=== PATIENT | female | born 2000 ===

== ENCOUNTER 2021-04-01 06:55 | Inpatient (IN) | payer SELFPAY ==
[2021-04-01] MEDS ORDERED: LACTATED RINGERS 1,000 ML ONE (07:57)
[2021-04-01] MEDS ORDERED: MINERAL OIL 30 ML ORAL LIQD PO PRN (09:06)
[2021-04-01] MEDS ORDERED: CARBOPROST TROMETHAMINE 250 MCG/1 ML INJ IM PRN (09:06)
[2021-04-01] MEDS ORDERED: ONDANSETRON 4 MG/2 ML INJ IV PRN (09:06)
[2021-04-01] MEDS ORDERED: NALOXONE 0.4 MG/1 ML INJ IV PRN (09:06)
[2021-04-01] MEDS ORDERED: PROMETHAZINE 25 MG TAB PO PRN (09:06)
[2021-04-01] MEDS ORDERED: OXYTOCIN 10 UNIT/1 ML INJ IM PRN (09:06)
[2021-04-01] MEDS ORDERED: miSOPROStol 200 MCG TAB PR PRN (09:06)
[2021-04-01] MEDS ORDERED: ACETAMINOPHEN 325 MG TAB PO PRN (09:06)
[2021-04-01] MEDS ORDERED: METHYLERGONOVINE MALEATE 0.2 MG/ML VIAL IM PRN (09:06)
[2021-04-01] MEDS ORDERED: LOPERAMIDE 2 MG CAP PO PRN (09:06)
[2021-04-01] MEDS ORDERED: ePHEDrine SULFATE 50 MG/1 ML INJ IV PRN (09:06)
[2021-04-01] MEDS ORDERED: NalbUPHINE 10 MG/1 ML INJ IV PRN (09:06)
[2021-04-01] MEDS ORDERED: TERBUTALINE 1 MG/1 ML INJ SUB-Q PRN (09:06)
[2021-04-01] MEDS ORDERED: fentaNYL 100 MCG/2 ML INJ IV PRN (09:06)
[2021-04-01] MEDS ORDERED: LACTATED RINGERS 1,000 ML IV SCH (09:15)
--- NOTE | 2021-04-01 09:19 | History and Physical Report ---
History of Present Illness Date of examination: 04/01/21 Date of admission: 04/01/21 Chief complaint: contractions History of present illness: at 40.0wks by LMP c/w [place] care at [facility] covered by [employer]. Pt presents with c/o ctx, denies LOF or vag bleed, but admits to bloody mucoid discharge. Denies headache. Admits to movement. recoreds with O positive, rubella immune, VDRL, HepBsAg and HIV all negative. GC/Chlam neg and GBS neg Past History Past Medical History: no pertinent history Past Surgical History: no surgical history Family/Genetic History: none Social history: no significant social history - Obstetrical History Expected Date of Delivery: 04/01/21 Actual Gestation: 40 Week(s) 0 Day(s) : 1 Number of Living Children: 0 Medications and Allergies Allergies Allergy/AdvReac Type Severity Reaction Status Date / Time No Known Allergies Allergy Unverified 04/01/21 07:25 Active Meds: Active Medications Acetaminophen (Acetaminophen 325 Mg Tab) 650 mg PO Q4H PRN PRN Reason: Pain, Mild (1-3) Carboprost Tromethamine (Carboprost Tromethamine 250 Mcg/1 Ml Inj) 250 mcg IM ONCE PRN PRN Reason: Uterine Bleeding Ephedrine Sulfate (Ephedrine Sulfate 50 Mg/1 Ml Inj) 10 mg IV Q2M PRN PRN Reason: Hypotension Fentanyl (Fentanyl 100 Mcg/2 Ml Inj) 100 mcg IV Q2H PRN PRN Reason: Pain,Severe (7-10) LABOR PAIN Oxytocin/Sodium Chloride (Pitocin/Ns 30 Unit/500ml) 30 units in 500 mls @ 2 mls/hr IV TITR KHALIDA; Protocol Lactated Ringer's (Lactated Ringers) 1,000 mls @ 125 mls/hr IV DIRECT KHALIDA Oxytocin/Sodium Chloride (Pitocin/Ns 30 Unit/500ml) 30 units in 500 mls @ 40 mls/hr IV TITR KHALIDA; Protocol Lidocaine (Lidocaine (2%) 20 Mg/1 Ml Vial 20 Ml Mdv) 20 ml INFILTRATI ONCE ONE Stop: 04/01/21 09:07 Loperamide HCl (Loperamide 2 Mg Cap) 2 mg PO ONCE PRN PRN Reason: give with Hemabate Methylergonovine Maleate (Methylergonovine Maleate 0.2 Mg/Ml Vial) 0.2 mg IM ONCE PRN PRN Reason: Uterine Bleeding Mineral Oil (Mineral Oil 30 Ml Oral Liqd) 30 ml PO QHS PRN PRN Reason: Constipation Misoprostol (Misoprostol 200 Mcg Tab) 800 mcg HI ONCE PRN PRN Reason: Uterine Bleeding Nalbuphine HCl (Nalbuphine 10 Mg/1 Ml Inj) 10 mg IV Q2H PRN PRN Reason: Pain, Moderate (4-6) Naloxone HCl (Naloxone 0.4 Mg/1 Ml Inj) 0.1 mg IV Q2MIN PRN PRN Reason: Res Rate </= 8 or 02 SAT < 92% Ondansetron HCl (Ondansetron 4 Mg/2 Ml Inj) 4 mg IV Q8H PRN PRN Reason: Nausea And Vomiting Oxytocin (Oxytocin 10 Unit/1 Ml Inj) 10 unit IM ONCE PRN PRN Reason: Uterine Bleeding Promethazine HCl (Promethazine 25 Mg Tab) 25 mg PO Q6H PRN PRN Reason: Nausea And Vomiting Terbutaline Sulfate (Terbutaline 1 Mg/1 Ml Inj) 0.25 mg SUB-Q ONCE PRN PRN Reason: Hyperstimulation/Hypertonicity Review of Systems All systems: negative (ctx) - Vital Signs Vital signs: Vital Signs Pulse Pulse Ox 93 H 99 04/01/21 07:21 04/01/21 07:21 Temp Pulse Resp BP Pulse Ox 84 100 04/01/21 07:51 04/01/21 07:51 - Physical Exam Breasts: Positive: deferred Cardiovascular: Regular rate Lungs: Positive: Normal air movement Genitourinary (Female): Positive: normal external genitalia Vulva: both: normal - Obstetrical FHR: category 1 Uterine Contraction Monitor Mode: External Cervical Dilatation: 6 (previously 4cm by triage nurse) Cervical Effacement Percentage: 90 station: -1 Uterine Contraction Pattern: Regular Results Result Diagrams: 04/01/21 08:16 04/01/21 18:54 All other labs normal. Assessment and Plan Term IUP in active labor, GBS negative 1. Admit to labor and delivery, repeat pelvic exam and if same unchanged then augment with IV pitocin in 2hrs 2. May have IV pain med or epidural when desired; expect 3. Plan of care discussed with pt and her mother at bedside per pt choice. Pt agrees. All questions encouraged and answered
[2021-04-01] MEDS ORDERED: OXYTOCIN DRIP 30,000 MILLIUNITS/500 ML BAG IV ONE (09:41)
[2021-04-01] MEDS ORDERED: OXYTOCIN DRIP 30 UNITS/500 ML BAG IV SCH ×2 (10:00)
[2021-04-01] MEDS ORDERED: LIDOCAINE (2%) 20 MG/1 ML VIAL 20 ML MDV INFILTRATI ONE ×2 (10:00→21:59)
[2021-04-01 11:12] LABS: Hematocrit 33.1 % (30.3-42.9); Hemoglobin 10.6 gm/dl (10.1-14.3); Mean Corpuscular HGB Conc 32 % (30-34); Mean Corpuscular Volume 88 fl (79-97); Platelet Count 213 K/mm3 (140-440); Red Blood Count 3.76 M/mm3 (3.65-5.03); Red Cell Distribution Width 16.6 % (13.2-15.2)
[2021-04-01] MEDS ORDERED: AMPICILLIN/NS 2 GM/100 ML 2 GM/100 ML BAG IV ONE (18:21)
[2021-04-01] MEDS: AMPICILLIN/NS 2 GM/100 ML 2 GM/100 ML BAG IV SCH (18:27)
[2021-04-01] MEDS: GENTAMICIN/NS 100 MG/100 ML 100 MG/100 ML BAG IV SCH (19:50)
[2021-04-01 20:17] LABS: Alanine Aminotransferase 14 units/L (7-56); Albumin 3.1 g/dL (3.9-5); Blood Urea Nitrogen 7 mg/dL (7-17); Calcium 8.8 mg/dL (8.4-10.2); Hemolysis Index 0
[2021-04-01 20:33] LABS: BUN/Creatinine Ratio 14
[2021-04-01] MEDS ORDERED: WITCH HAZEL/ GLYCERIN PAD TP PRN (23:03)
[2021-04-01] MEDS ORDERED: HYDROcodone/ACETAMINOPHEN 5-325 MG TAB PO PRN (23:03)
[2021-04-01] MEDS ORDERED: BENZOCAINE/MENTHOL 20/0.5% TOP SPRAY 56 GM TP PRN (23:03)
[2021-04-01] MEDS ORDERED: LANOLIN/ZINC/DIMETHICONE (LANSINOH) 7 GM TP PRN (23:03)
[2021-04-01] MEDS ORDERED: MAGNESIUM HYDROXIDE (MOM) ORAL LIQD UDC PO PRN (23:03)
--- NOTE | 2021-04-01 23:24 | Procedure Note ---
OB Delivery Note - Delivery Date of Delivery: 04/01/21 Surgeon: MEGAN OLIVER Estimated blood loss: 200cc - Vaginal Delivery presentation: vertex Delivery position: OA Intrapartum events: meconium Delivery augmentation: pitocin Delivery monitor: external FHT, external uterine Route of delivery: Delivery placenta: spontaneous Delivery cord: 3 umbilical vessels Delivery laceration: 1st degree Delivery repair: vicryl Anesthesia: none Delivery comments: Spontaneous vaginal delivery at 22:29 of liveborn male weighing 7 lb. 12 oz. with apgars of 8/9. Meconium stained amniotic fluid; NICU present for delivery. Snug shoulders; posterior arm delivered which made room for anterior shoulder. Baby placed on mom's chest immediately afer formerly [facility]. 3 vessel cord double clamped and cut and baby taken to [facility] for suctioning. Spontaneous cry and respirations. Spontaneous delivery of intact placenta and membranes; Pitocin to IV fluids. EBL 200 cc. Fundus firm at 2 FB below umbilicus. 1st degree episiotomy repaired with 3-0 vicryl. No other lacerations noted. Vaginal sweep negative. Sponge count correct. Mother and baby stable.
[2021-04-02] MEDS: GENTAMICIN/NS 100 MG/100 ML 100 MG/100 ML BAG IV SCH ×2 (05:54→17:18)
--- NOTE | 2021-04-02 05:59 | Progress Note ---
Assessment and Plan PPD#1 doing fair 1. Check CBC later today 2. Routine care and pt to ambulate in room All questions encouraged and answered Subjective Date of service: 04/02/21 Principal diagnosis: PPD#1 with swollen labia Interval history: pt has no complaints. pt voiding without difficulty. pt is bottle feeding. Pain controlled with meds. Objective - Constitutional Vitals: Vital Signs - 12hr 04/01/21 04/01/21 04/01/21 17:56 18:07 18:09 Temperature Pulse Rate 88 75 78 Respiratory Rate Blood Pressure 113/63 O2 Sat by Pulse 99 99 Oximetry O2 Sat by Pulse Oximetry [ Bilateral] 04/01/21 04/01/21 04/01/21 18:12 18:17 18:21 Temperature Pulse Rate 84 86 Respiratory 16 Rate Blood Pressure O2 Sat by Pulse 100 100 Oximetry O2 Sat by Pulse Oximetry [ Bilateral] 04/01/21 04/01/21 04/01/21 18:22 18:27 18:32 Temperature Pulse Rate 75 80 79 Respiratory Rate Blood Pressure O2 Sat by Pulse 100 99 100 Oximetry O2 Sat by Pulse Oximetry [ Bilateral] 04/01/21 04/01/21 04/01/21 18:37 18:42 18:47 Temperature Pulse Rate 74 74 82 Respiratory Rate Blood Pressure O2 Sat by Pulse 99 100 99 Oximetry O2 Sat by Pulse Oximetry [ Bilateral] 04/01/21 04/01/21 04/01/21 18:52 18:57 19:02 Temperature Pulse Rate 88 69 79 Respiratory Rate Blood Pressure O2 Sat by Pulse 100 99 100 Oximetry O2 Sat by Pulse Oximetry [ Bilateral] 04/01/21 04/01/21 04/01/21 19:07 19:12 19:17 Temperature Pulse Rate 74 70 81 Respiratory Rate Blood Pressure O2 Sat by Pulse 99 99 100 Oximetry O2 Sat by Pulse Oximetry [ Bilateral] 04/01/21 04/01/21 04/01/21 19:18 19:22 19:27 Temperature Pulse Rate 82 74 84 Respiratory Rate Blood Pressure O2 Sat by Pulse 94 100 99 Oximetry O2 Sat by Pulse Oximetry [ Bilateral] 04/01/21 04/01/21 04/01/21 19:32 19:37 19:42 Temperature Pulse Rate 78 81 81 Respiratory Rate Blood Pressure O2 Sat by Pulse 99 98 98 Oximetry O2 Sat by Pulse Oximetry [ Bilateral] 04/01/21 04/01/21 04/01/21 19:44 19:47 19:52 Temperature Pulse Rate 76 78 76 Respiratory Rate Blood Pressure O2 Sat by Pulse 91 89 97 Oximetry O2 Sat by Pulse Oximetry [ Bilateral] 04/01/21 04/01/21 04/01/21 19:55 19:57 20:02 Temperature Pulse Rate 73 95 H 81 Respiratory Rate Blood Pressure 134/81 O2 Sat by Pulse 98 99 Oximetry O2 Sat by Pulse Oximetry [ Bilateral] 04/01/21 04/01/21 04/01/21 20:07 20:12 20:17 Temperature Pulse Rate 71 72 90 Respiratory Rate Blood Pressure O2 Sat by Pulse 97 98 100 Oximetry O2 Sat by Pulse Oximetry [ Bilateral] 04/01/21 04/01/21 04/01/21 20:22 20:27 20:32 Temperature Pulse Rate 75 74 81 Respiratory Rate Blood Pressure O2 Sat by Pulse 98 99 100 Oximetry O2 Sat by Pulse Oximetry [ Bilateral] 04/01/21 04/01/21 04/01/21 20:37 20:42 20:47 Temperature Pulse Rate 74 83 73 Respiratory Rate Blood Pressure O2 Sat by Pulse 99 100 98 Oximetry O2 Sat by Pulse Oximetry [ Bilateral] 04/01/21 04/01/21 04/01/21 20:52 20:57 21:02 Temperature Pulse Rate 71 91 H 77 Respiratory Rate Blood Pressure O2 Sat by Pulse 98 99 98 Oximetry O2 Sat by Pulse Oximetry [ Bilateral] 04/01/21 04/01/21 04/01/21 21:07 21:12 21:17 Temperature Pulse Rate 78 74 97 H Respiratory Rate Blood Pressure O2 Sat by Pulse 99 99 99 Oximetry O2 Sat by Pulse Oximetry [ Bilateral] 04/01/21 04/01/21 04/01/21 21:22 21:27 21:32 Temperature Pulse Rate 99 H 92 H 93 H Respiratory Rate Blood Pressure O2 Sat by Pulse 100 100 100 Oximetry O2 Sat by Pulse Oximetry [ Bilateral] 04/01/21 04/01/21 04/01/21 21:36 21:37 21:42 Temperature Pulse Rate 88 122 H 122 H Respiratory Rate Blood Pressure 118/66 O2 Sat by Pulse 99 99 Oximetry O2 Sat by Pulse Oximetry [ Bilateral] 04/01/21 04/01/21 04/01/21 21:47 21:52 21:57 Temperature Pulse Rate 114 H 84 76 Respiratory Rate Blood Pressure O2 Sat by Pulse 100 99 98 Oximetry O2 Sat by Pulse Oximetry [ Bilateral] 04/01/21 04/01/21 04/01/21 22:02 22:07 22:14 Temperature Pulse Rate 81 74 87 Respiratory Rate Blood Pressure O2 Sat by Pulse 99 98 99 Oximetry O2 Sat by Pulse Oximetry [ Bilateral] 04/01/21 04/01/21 04/01/21 22:16 22:19 22:40 Temperature Pulse Rate 96 H 135 H 102 H Respiratory Rate Blood Pressure 124/73 116/55 O2 Sat by Pulse 98 Oximetry O2 Sat by Pulse Oximetry [ Bilateral] 04/01/21 04/01/21 04/02/21 23:24 23:57 00:00 Temperature 98.3 F Pulse Rate 76 Respiratory Rate Blood Pressure 111/69 O2 Sat by Pulse Oximetry O2 Sat by Pulse 98 Oximetry [ Bilateral] 04/02/21 04/02/21 04/02/21 00:56 01:45 01:56 Temperature 98.2 F Pulse Rate 77 Respiratory 18 Rate Blood Pressure 103/57 O2 Sat by Pulse 97 Oximetry O2 Sat by Pulse 98 98 Oximetry [ Bilateral] General appearance: Present: no acute distress - Respiratory Respiratory effort: normal - Breasts Breasts: normal - Cardiovascular Rhythm: regular Extremities: No edema - Gastrointestinal General gastrointestinal: Present: soft, non-tender - Genitourinary Female genitourinary: other (fundus 1cm below umbilicus and non-tender; Lochia small; Labia with mild swelling and suture intact) - Integumentary Integumentary: warm, dry - Neurologic Neurologic: moves all extremities - Psychiatric Psychiatric: cooperative - Labs CBC & Chem 7: 04/01/21 08:16 04/01/21 18:54 Labs: Abnormal lab results 04/01/21 04/01/21 Range/Units 08:16 18:54 RDW 16.6 H (13.2-15.2) % Sodium 136 L (137-145) mmol/L Carbon Dioxide 18 L (22-30) mmol/L Creatinine 0.5 L (0.6-1.2) mg/dL Alkaline Phosphatase 250 H (35-129) units/L Albumin 3.1 L (3.9-5) g/dL Medications & Allergies - Medications Allergies/Adverse Reactions: Allergies No Known Allergies Allergy (Unverified 04/01/21 07:25) Active Medications: Generic Name Dose Route Start Last Admin Trade Name Ceci PRN Reason Stop Dose Admin Acetaminophen 650 mg 04/01/21 09:06 04/01/21 18:21 Acetaminophen 325 Mg Tab PO 650 mg Q4H PRN Administration Pain, Mild (1-3) Hydrocodone Bitart/Acetaminophen 2 each 04/01/21 23:03 Hydrocodone/Acetaminophen 5-325 Mg Tab PO Q6H PRN Pain, Moderate (4-6) Benzocaine/Menthol 1 spray 04/01/21 23:03 Benzocaine/Menthol 20/0.5% Top Borup 56 Gm TP PRN PRN Episiotomy Pain Docusate Sodium 100 mg 04/01/21 23:45 Docusate Sodium 100 Mg Cap PO BID KHALIDA Ampicillin Sodium 2 gm in 100 mls @ 100 mls/hr 04/01/21 18:30 04/01/21 18:27 Ampicillin/Ns 2 Gm/100 Ml IV 100 mls/hr Q6H KHALIDA Administration Protocol Gentamicin Sulfate/Sodium Chloride 100 mg in 100 mls @ 195.122 mls/hr 04/01/21 18:30 04/02/21 05:54 Gentamicin/Ns 100 Mg/100 Ml IV 195.122 mls/hr Q8H KHALIDA Administration Protocol Ibuprofen 600 mg 04/01/21 23:45 Ibuprofen 600 Mg Tab PO Q6H KHALIDA Magnesium Hydroxide 30 ml 04/01/21 23:03 Magnesium Hydroxide (Mom) Oral Liqd Udc PO HS PRN Constipation Multi-Ingredient Ointment 1 applic 04/01/21 23:03 Lanolin/Zinc/Dimethicone (Lansinoh) 7 Gm TP PRN PRN Sore Nipples Sodium Chloride 10 ml 04/01/21 23:45 Sodium Chloride 0.9% 10 Ml Flush Syringe IV 04/08/21 23:44 PRN NR Witch Susannah/Glycerin 1 each 04/01/21 23:03 Witch Susannah/ Glycerin Pad TP PRN PRN Hemorrhoid/cleansing/soothing
[2021-04-02] MEDS: DOCUSATE SODIUM 100 MG CAP PO SCH ×2 (10:03→22:23)
[2021-04-02] MEDS: IBUPROFEN 600 MG TAB PO SCH ×2 (10:04→17:00)
[2021-04-02 14:26] LABS: Hematocrit 30.5 % (30.3-42.9); Hemoglobin 9.6 gm/dl (10.1-14.3)
[2021-04-02] MEDS: AMPICILLIN/NS 2 GM/100 ML 2 GM/100 ML BAG IV SCH (18:40)
[2021-04-03] MEDS: DOCUSATE SODIUM 100 MG CAP PO SCH (10:58)
--- NOTE | 2021-04-03 11:36 | Progress Note ---
Assessment and Plan A: day 2 S/P . Anemia. P: Discharge patient home today. Discussed with patient discharge instructions and warning signs. Advised patient to continue taking vitamin and iron supplements at home. Advised patient to avoid intercourse, lifting, heavy housework. Advised patient to follow up at [facility] in 6 weeks. Patient voiced understanding of all instructions. Subjective - Subjective Date of service: 04/03/21 Principal diagnosis: PPD#2 Interval history: Patient desires discharge today. Patient reports: appetite normal, voiding normally, pain well controlled, flatus, ambulating normally, no dizzy ambulation, no nauseated : doing well Objective - Vital Signs Latest vital signs: Vital Signs Temp Pulse Resp BP Pulse Ox Pulse Ox 04/03/21 10:57 108/61 04/03/21 08:13 98.2 F 80 18 101/46 98 04/03/21 08:00 96 04/03/21 01:36 97.9 F 71 16 92/51 96 04/02/21 20:00 98 04/02/21 17:00 16 04/02/21 15:15 97.8 F 70 17 111/63 98 04/02/21 12:07 98.1 F 76 17 97/57 98 Intake and Output 04/02/21 04/03/21 04/03/21 23:59 07:59 15:59 Intake Total 480 200 Balance 480 200 Intake: Oral 200 Intake, Free Water 480 Other: Total, Intake Amount 200 # Voids Void 1 2 1 - Exam Cardiovascular: Present: Regular rate Lungs: Present: Clear to auscultation Abdomen: Present: normal appearance, soft. Absent: distention, tenderness, guarding, rigidity Uterus: Present: normal, firm, fundal height below umbilicus (fundus firm at 2 FB below umbilicus). Absent: bogginess, tenderness Extremities: Present: normal. Absent: tenderness, edema - Labs Labs: Abnormal lab results 04/02/21 Range/Units 13:50 Hgb 9.6 L (10.1-14.3) gm/dl
--- NOTE | 2021-04-03 11:46 | Discharge Summary ---
Providers - Providers Date of Admission: 04/01/21 06:56 Date of discharge: 04/03/21 Attending physician: ASHLEY VUONG MD 04/02/21 11:27 Consult to Case Management [CONS] Routine Services Needed at Discharge: [employer] Notified:: [phone] Phone number called:: [phone] Comment:: In need of car seat for baby Primary care physician: ASHLEY VUONG MD Hospitalization Reason for admission: active labor Delivery: Episiotomy: mediolateral Other procedures: none complications: none Discharge diagnosis: IUP at term delivered baby: male Pertinent studies: Labs Hospital course: Uncomplicated hospital course Condition at discharge: Good Disposition: 01 HOME / SELF CARE / HOMELESS - Discharge Diagnoses (1) Term delivered Status: Acute (2) Anemia Status: Acute Plan - Provider Discharge Summary Activity: routine, no sex for 6 weeks, no heavy lifting 4 weeks, no strenuous exercise Diet: routine Instructions: routine Additional instructions: Continue taking your vitamin and iron supplements at home. Call your doctor immediately for: * Fever > 100.5 * Heavy vaginal bleeding ( >1 pad per hour) * Severe persistent headache * Shortness of breath * Reddened, hot, painful area to leg or breast - Follow up plan Follow up: PRIMARY CARE, [Referring] - 6 Weeks Forms: [facility] Discharge Summary
[2021-04-03] MEDS: IBUPROFEN 600 MG TAB PO SCH (12:40)
[2021-04-03 17:09] VITALS: BP 107/59
== END 2021-04-03 15:15 | disposition home or self-care (01) | DRG 807 ==
LOC: TRG 06:55 → LD 06:56 → APU 06:59 → LD 09:18 → TRG 09:20 → OB 04-02 02:55
PROVIDERS: ADMIT Obstetrics & Gynecology Gynecology; ATTEND Obstetrics & Gynecology Gynecology
PROC: 10E0XZZ Delivery of Products of Conception, External Approach (ICD-10-PCS; principal; 2021-04-01)
PROC: 0HQ9XZZ Repair Perineum Skin, External Approach (ICD-10-PCS; 2021-04-01)
DX: O77.0 Labor and delivery complicated by meconium in amniotic fluid (principal); Z37.0 Single live birth; Z3A.40 40 weeks gestation of pregnancy; Z20.822 Contact with and (suspected) exposure to COVID-19; O70.0 First degree perineal laceration during delivery; O90.81 Anemia of the puerperium
CPT/HCPCS: 36415; 80053; 85014; 85018; 85027; 86592; 86850; 86900; 86901; 96360; 96361; 96374; G0378; J0290; J1580; J2590; J3010; U0003